=== PATIENT | female | born 1965 | race Two or more races ===

== ENCOUNTER 2021-02-04 10:08 | Outpatient (CLI) | payer OTHER, SELFPAY ==
--- NOTE | 2021-02-04 | ECG_ITS ---
Measurements Intervals [place] Rate: 60 P: 67 MT: 159 QRS: -18 QRSD: 86 T: 26 QT: 393 QTc: 394 Interpretive Statements SINUS RHYTHM CANNOT RULE OUT SEPTAL INFARCT, AGE INDETERMINATE BASELINE ARTIFACT- I, II, III, AVR, AVF ABNORMAL ECG Electronically Signed On 02-04-2021 11:13:37 CDT by Mo Busby D.O.
== END 2021-02-04 10:09 | disposition home or self-care (01) ==
LOC: ANHCARD 10:13
PROVIDERS: PCP Emergency Medicine; Visit Provider Emergency Medicine
DX: Z01.818 Encounter for other preprocedural examination (principal); R94.31 Abnormal electrocardiogram [ECG] [EKG]
CPT/HCPCS: 93005